=== PATIENT | female | born 1990 | race African-American/Black ===

== ENCOUNTER 2019-09-15 15:23 | Emergency (ER) | payer OTHER ==
--- NOTE | 2019-09-15 16:11 | EDM.PDOC ---
ED HPI GENERAL MEDICAL PROBLEM - General Chief Complaint: Abdominal Pain Stated Complaint: ABDOMINAL PAIN Time Seen by Provider: 09/15/19 15:29 Source of Information: Reports: Patient History Limitations: Reports: No Limitations - History of Present Illness INITIAL COMMENTS - FREE TEXT/NARRATIVE: Presents reporting a 3 to 4-day history of lower abdominal pain. She characterizes it as stabbing and colicky as it comes and goes. Sitting makes it worse. She is 16 weeks 2 para 0 miscarriage 1. She denies vaginal bleeding discharge or itch. She denies dysuria, fever, nausea, vomiting , diarrhea or constipation. She had a brown formed stool yesterday. Her OB provider is in [place]. Last saw her provider on August 23. Nothing abnormal. abd Pain Score (Numeric/FACES): 10 - Related Data Allergies Allergy/AdvReac Type Severity Reaction Status Date / Time No Known Allergies Allergy Verified 09/15/19 15:36 Home Meds: Home Meds . [No Known Home Meds] 09/15/19 [History] #103/Iron Fumarate/Fa [ ] 1 each PO 09/15/19 [History] ED ROS GENERAL - Review of Systems Review Of Systems: Comprehensive ROS is negative, except as noted in HPI. ED EXAM, GI/ABD - Physical Exam Exam: See Below Exam Limited By: No Limitations General Appearance: Alert, No Apparent Distress Ears: Normal External Exam Nose: Normal Inspection Throat/Mouth: Normal Inspection Head: Atraumatic, Normocephalic Neck: Normal Inspection Respiratory/Chest: No Respiratory Distress, Lungs Clear, Normal Breath Sounds Cardiovascular: Normal Peripheral Pulses, Regular Rate, Rhythm GI/Abdominal Exam: Soft, No Distention, Tender (Low left lower quadrant and suprapubic tenderness less so right lower quadrant) Course - Vital Signs Last Recorded V/S: Last Vital Signs Temp 36.2 C 09/15/19 15:34 Pulse 87 09/15/19 18:39 Resp 16 09/15/19 18:39 BP 102/63 09/15/19 18:39 Pulse Ox 98 09/15/19 18:39 - Orders/Labs/Meds Labs: Laboratory Tests 09/15/19 09/15/19 09/15/19 Range/Units 15:40 16:12 16:12 WBC 9.07 (4.0-11.0) K/uL RBC 4.26 L (4.30-5.90) M/uL Hgb 13.0 (12.0-16.0) g/dL Hct 38.4 (36.0-46.0) % MCV 90.1 (80.0-98.0) fL MCH 30.5 (27.0-32.0) pg MCHC 33.9 (31.0-37.0) g/dL RDW Std Deviation 47.6 (28.0-62.0) fl RDW Coeff of Mckayla 14 (11.0-15.0) % Plt Count 234 (150-400) K/uL MPV 9.60 (7.40-12.00) fL Neut % (Auto) 66.1 (48.0-80.0) % Lymph % (Auto) 22.9 (16.0-40.0) % [place] % (Auto) 9.0 (0.0-15.0) % Eos % (Auto) 1.8 (0.0-7.0) % Baso % (Auto) 0.2 (0.0-1.5) % Neut # (Auto) 6.0 H (1.4-5.7) K/uL Lymph # (Auto) 2.1 (0.6-2.4) K/uL [place] # (Auto) 0.8 (0.0-0.8) K/uL Eos # (Auto) 0.2 (0.0-0.7) K/uL Baso # (Auto) 0.0 (0.0-0.1) K/uL Nucleated RBC % 0.0 /100WBC Nucleated RBCs # 0 K/uL Sodium 138 (136-145) mmol/L Potassium 3.7 (3.5-5.1) mmol/L Chloride 104 (98-107) mmol/L Carbon Dioxide 25.0 (21.0-32.0) mmol/L BUN 7 (7.0-18.0) mg/dL Creatinine 0.6 (0.6-1.0) mg/dL Est Cr Clr Drug Dosing 116.50 mL/min Estimated GFR (MDRD) > 60.0 ml/min Glucose 86 (74-106) mg/dL Calcium 9.0 (8.5-10.1) mg/dL Total Bilirubin 0.2 (0.2-1.0) mg/dL AST 49 H (15-37) IU/L ALT 65 H (14-63) IU/L Alkaline Phosphatase 51 (46-116) U/L Total Protein 7.5 (6.4-8.2) g/dL Albumin 3.0 L (3.4-5.0) g/dL Globulin 4.5 H (2.6-4.0) g/dL Albumin/Globulin Ratio 0.7 L (0.9-1.6) HCG, Quant mIU/mL Urine Color YELLOW Urine Appearance SLT CLOUDY Urine pH 5.5 (5.0-8.0) Ur Specific [place] 1.025 (1.001-1.035) Urine Protein NEGATIVE (NEGATIVE) mg/dL Urine Glucose (UA) NEGATIVE (NEGATIVE) mg/dL Urine Ketones 40 H (NEGATIVE) mg/dL Urine Occult Blood TRACE-INTACT H (NEGATIVE) Urine Nitrite NEGATIVE (NEGATIVE) Urine Bilirubin NEGATIVE (NEGATIVE) Urine Urobilinogen 0.2 (<2.0) EU/dL Ur Leukocyte Esterase TRACE H (NEGATIVE) Urine RBC 0-2 (0-2/HPF) Urine WBC 1-3 (0-5/HPF) Ur Epithelial Cells MODERATE (NONE-FEW) Urine Bacteria FEW (NEGATIVE) 09/15/19 Range/Units 16:12 WBC (4.0-11.0) K/uL RBC (4.30-5.90) M/uL Hgb (12.0-16.0) g/dL Hct (36.0-46.0) % MCV (80.0-98.0) fL MCH (27.0-32.0) pg MCHC (31.0-37.0) g/dL RDW Std Deviation (28.0-62.0) fl RDW Coeff of Mckayla (11.0-15.0) % Plt Count (150-400) K/uL MPV (7.40-12.00) fL Neut % (Auto) (48.0-80.0) % Lymph % (Auto) (16.0-40.0) % [place] % (Auto) (0.0-15.0) % Eos % (Auto) (0.0-7.0) % Baso % (Auto) (0.0-1.5) % Neut # (Auto) (1.4-5.7) K/uL Lymph # (Auto) (0.6-2.4) K/uL [place] # (Auto) (0.0-0.8) K/uL Eos # (Auto) (0.0-0.7) K/uL Baso # (Auto) (0.0-0.1) K/uL Nucleated RBC % /100WBC Nucleated RBCs # K/uL Sodium (136-145) mmol/L Potassium (3.5-5.1) mmol/L Chloride (98-107) mmol/L Carbon Dioxide (21.0-32.0) mmol/L BUN (7.0-18.0) mg/dL Creatinine (0.6-1.0) mg/dL Est Cr Clr Drug Dosing mL/min Estimated GFR (MDRD) ml/min Glucose (74-106) mg/dL Calcium (8.5-10.1) mg/dL Total Bilirubin (0.2-1.0) mg/dL AST (15-37) IU/L ALT (14-63) IU/L Alkaline Phosphatase (46-116) U/L Total Protein (6.4-8.2) g/dL Albumin (3.4-5.0) g/dL Globulin (2.6-4.0) g/dL Albumin/Globulin Ratio (0.9-1.6) HCG, Quant 65114.0 mIU/mL Urine Color Urine Appearance Urine pH (5.0-8.0) Ur Specific [place] (1.001-1.035) Urine Protein (NEGATIVE) mg/dL Urine Glucose (UA) (NEGATIVE) mg/dL Urine Ketones (NEGATIVE) mg/dL Urine Occult Blood (NEGATIVE) Urine Nitrite (NEGATIVE) Urine Bilirubin (NEGATIVE) Urine Urobilinogen (<2.0) EU/dL Ur Leukocyte Esterase (NEGATIVE) Urine RBC (0-2/HPF) Urine WBC (0-5/HPF) Ur Epithelial Cells (NONE-FEW) Urine Bacteria (NEGATIVE) Meds: Medications Discontinued Medications Generic Name Dose Route Start Last Admin Trade Name Freq PRN Reason Stop Dose Admin Morphine Sulfate 4 mg 09/15/19 18:28 09/15/19 18:36 Morphine IVPUSH 09/15/19 18:29 4 mg ONETIME ONE Administration Ondansetron HCl 4 mg 09/15/19 18:28 09/15/19 18:36 Zofran IVPUSH 09/15/19 18:29 4 mg ONETIME ONE Administration - Re-Assessments/Exams Free Text/Narrative Re-Assessment/Exam: Phone consultation with Dr.Yao Rolo MD [employer]. Lab and ultrasound, history and exam findings discussed. Will treat for pain and have her follow-up with her [employer] MACHINE OPERATOR in [place] tomorrow. 09/15/19 18:43 Free Text/Narrative Re-Assessment/Exam: 09/15/19 18:30 Dr. Velasco examined the patient. Departure - Departure Time of Disposition: 18:45 Disposition: Home, Self-Care 01 Condition: Fair Clinical Impression: Abdominal pain - Discharge Information Referrals: PCP,Not In Area [Primary Care Provider] - Martha Mcintosh MD [Ordering Only Provider] - Forms: ED Department Discharge Additional Instructions: 1. Tylenol 500mg every 6 hours as needed for pain 2. Follow-up with your custom garment designer in [place] tomorrow 3. No driving or operating machinery this evening as you have been given opioid pain medication. 4. Return promptly for worsening or not improving symptoms, vaginal bleeding, lightheadedness Sepsis Event Note - Evaluation Sepsis Screening Result: No Definite Risk - Focused Exam Vital Signs: Vital Signs Temp Pulse Resp BP Pulse Ox 09/15/19 18:39 87 16 102/63 98 09/15/19 17:33 86 16 101/62 99 09/15/19 15:34 36.2 C 98 16 130/79 98 Date Exam was Performed: 09/15/19 Time Exam was Performed: 18:42
[2019-09-15 16:39] LABS: BLOOD UREA NITROGEN,BUN 7 mg/dL (7.0-18.0); CHLORIDE,CL 104 mmol/L (98-107); GLUCOSE RANDOM 86 mg/dL (74-106); POTASSIUM,K 3.7 mmol/L (3.5-5.1); SODIUM,NA 138 mmol/L (136-145)
--- NOTE | 2019-09-15 18:10 | US ---
INDICATION: with cramping and lower pelvic pain. TECHNIQUE: Ultrasound OB pelvis transabdominal. Real-time pritchard-scale imaging of the fetus was performed as well as color Doppler and spectral Doppler analysis of the umbilical artery. COMPARISON: None. FINDINGS: Sonographic imaging demonstrates a single living intrauterine gestation. Fetus demonstrates a regular cardiac rate of 151 beats per minute. Fetus has a cephalic orientation. The placenta lies posterior without evidence of placenta previa. Amniotic fluid volume appears normal with an CECILIO of 7.5 cm. Cervix is closed. There are 2 posterior uterine fibroids with the larger fibroid measuring up to 5 cm. Biometry: Biparietal diameter: 3.6 cm, 17 weeks 0 days. Head circumference: 4.6 cm, 17 weeks 1 day. Abdominal circumference: 9.9 cm, 16 weeks 0 days. Femoral length: 1.8 cm, 15 weeks 3 days. The composite ultrasound gestational age is calculated at 16 weeks 1 day with an estimated sonographic due date of February 29, 2020. Limited anatomical survey demonstrates no evidence of anomaly. IMPRESSION: 1.Single viable intrauterine . 2.No related abnormality evident. 3. Two posterior uterine fibroids with the larger fibroid measuring 5 cm. Dictated by Sal Burt MD @ Sep 15 2019 6:01PM Signed by Dr. Sal Burt @ Sep 15 2019 6:08PM
[2019-09-15] MEDS ORDERED: Ondansetron 4 MG/2 ML SDV IVPUSH ONE (18:28)
[2019-09-15] MEDS ORDERED: Morphine 4 MG/ML Syringe IVPUSH ONE (18:28)
== END 2019-09-15 19:00 | disposition home or self-care (01) ==
LOC: MW.ED 15:23
DX: O99.89 Other specified diseases and conditions complicating pregnancy, childbirth and the puerperium (principal); R10.31 Right lower quadrant pain; R10.32 Left lower quadrant pain; Z3A.16 16 weeks gestation of pregnancy
CPT/HCPCS: 36415; 76805; 80053; 81001; 84702; 85025; 96374; 96375; 99284; J2270; J2405; 99283